=== PATIENT | female | born 1945 | race Caucasian/White ===

== ENCOUNTER → 2016-04-25 | Outpatient (CLI) | payer OTHER ==
--- NOTE | 2016-04-25 16:17 | DX ---
PA and Lateral Chest April 25, 2016 Indication: Shortness of breath. Findings: Lungs have mild diffuse peribronchial thickening particularly in the mid and lower lung zon es with associated linear atelectasis versus scarring in the left base. No airspace consolidation, ed rasta, or effusion. No pulmonary nodule or mass. The heart size is normal. Minimal benign calcification near the right humeral head may represent calcific rotator cuff tendinitis. Impression: Mild bronchitis and minimal left basilar atelectasis versus scarring.
== END ==
LOC: FIMAGING 14:30
PROVIDERS: ATTEND Internal Medicine Geriatric Medicine
DX: J40 Bronchitis, not specified as acute or chronic (principal)

== ENCOUNTER → 2017-06-23 | Outpatient (CLI) | payer OTHER | LOC: FIMAGING 11:45 | PROVIDERS: ATTEND Internal Medicine | DX: Z13.820 Encounter for screening for osteoporosis (principal); M85.89 Other specified disorders of bone density and structure, multiple sites; E03.9 Hypothyroidism, unspecified; Z78.0 Asymptomatic menopausal state ==

== ENCOUNTER → 2017-11-25 | Outpatient (CLI) | payer OTHER | DX: R05 Cough (principal); R06.00 Dyspnea, unspecified | CPT/HCPCS: 71046-PO ==